=== PATIENT | male | born 1970 | race Caucasian/White ===

== ENCOUNTER 2023-01-10 17:42 | Emergency (ER) | payer OTHER, SELFPAY ==
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
[2023-01-10 17:47] VITALS: BP 140/83; PULSE 97; TEMP 37.6; O2SAT 95
[2023-01-10] MEDS: GLUCAGON FOR INJ 1 MG VIAL IV PUSH (18:22)
--- NOTE | 2023-01-10 18:46 | ED.GENADULT ---
HPI - General Adult General Chief complaint: Unspecified Stated complaint: Partial airway obstruction Time Seen by Provider: 01/10/23 17:47 Source: patient and family Mode of arrival: ambulatory Limitations: no limitations History of Present Illness HPI narrative: This is a 52-year-old gentleman that presents via EMS after he was eating steak and felt like a bolus was caught in the esophagus and was having difficult time swallowing. Although there is no drooling his voice is hoarse there is some no shortness of breath no airway obstruction not drooling no fever chills no chest pain no shortness of breath. Onset (ago): hour(s) Related Data Home Medications Medication Instructions Recorded Confirmed No Home Medications 01/10/23 01/10/23 Allergies Allergy/AdvReac Type Severity Reaction Status Date / Time gentamicin Allergy Other Verified 01/10/23 17:54 Review of Systems Review of Systems: All systems reviewed & are unremarkable except as noted in HPI and below PMFSH Past Medical History Medical History Patient denies medical problems Exam Const: General: cooperative and healthy appearing HENMT: Head: normal to inspection Ears: hearing grossly normal bilaterally Face/Nose/Sinus: Normal external nose present Face and sinus: normal facial exam Mouth: Yes Normal oral and palatal mucosa present Teeth and gingiva: dentition normal Throat: posterior oropharynx normal Eyes: General: appearance normal, both eyes and all related structures Visual Saab: normal visual saab by confrontation Alignment and Position: alignment normal Periorbital: periorbital findings normal Neck: Neck: normal visual inspection, full ROM, no lymphadenopathy and no meningeal signs Chest: Chest palpation & inspection: normal inspection of the chest and normal palpation of entire chest wall Resp: Effort & Inspection: normal respiratory effort and able to speak in complete sentences Cardio: Jugular venous distension: no JVD Palpation: normal PMI Rate: regular rate Rhythm: regular rhythm GI: Inspection: normal to inspection Percussion: Yes normal to percussion : General: Yes bimanual renal exam normal bilaterally Urinary Catheter: Urinary Catheter: patent and draining Back/Spine/Pelvis: Back: no CVA tenderness Skin: General skin exam: normal color and no rashes or lesions noted Neuro: General: oriented to person, oriented to place and oriented to time Extrem: General: normal to inspection, full ROM and capillary refill normal Course Vital Signs Vital signs: Vital Signs Temperature 37.6 C H 01/10/23 17:47 Pulse Rate 97 01/10/23 17:47 Blood Pressure 140/83 01/10/23 17:47 Pulse Oximetry 95 01/10/23 17:47 Oxygen Delivery Room Air 01/10/23 17:47 Temperature 37.6 C H 01/10/23 17:47 Pulse Rate 97 01/10/23 17:47 Blood Pressure 140/83 01/10/23 17:47 Pulse Oximetry 95 01/10/23 17:47 Oxygen Delivery Room Air 01/10/23 17:47 Medical Decision Making Vital Signs Vital Signs: Vital Signs Temperature 37.6 C H 01/10/23 17:47 Pulse Rate 97 01/10/23 17:47 Blood Pressure 140/83 01/10/23 17:47 Pulse Oximetry 95 01/10/23 17:47 Oxygen Delivery Room Air 01/10/23 17:47 Temperature 37.6 C H 01/10/23 17:47 Pulse Rate 97 01/10/23 17:47 Blood Pressure 140/83 01/10/23 17:47 Pulse Oximetry 95 01/10/23 17:47 Oxygen Delivery Room Air 01/10/23 17:47 Critical Care Time Critical Care Time Critical Care Time: No Discharge Plan Discharge Clinical Impression: Foreign body aspiration Patient Disposition: Home, Self-Care Condition: Stable Instructions: Antibiotic Form, Esophageal Foreign Body (ED) Additional Instructions: advised to follow-up primary care physician if symptoms persist or worsen. Prescriptions: No Action No Home Medications Follow-up/Referrals: U
[2023-01-10 18:55] VITALS: BP 140/67; PULSE 65; RESP 16; TEMP 36.8; O2SAT 97
== END 2023-01-10 18:57 | disposition home or self-care (01) ==
PROVIDERS: Emergency Provider Emergency Medicine
DX: T17.228A Food in pharynx causing other injury, initial encounter (principal)
CPT/HCPCS: 70360; 96374; 99284; J1610

== ENCOUNTER 2023-07-07 12:02 | Emergency (ER) | payer OTHER, SELFPAY ==
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
[2023-07-07 12:05] VITALS: BP 171/87; PULSE 83; RESP 20; TEMP 36.1; O2SAT 99
--- NOTE | 2023-07-07 12:28 | PC.NURSE ---
Patient has family member present in ED that is driving him home.
[2023-07-07 12:32] VITALS: BP 150/76; PULSE 83; RESP 20; TEMP 36.1; O2SAT 100
== END 2023-07-07 12:32 | disposition home or self-care (01) ==
PROVIDERS: Emergency Provider Emergency Medicine
DX: S01.01XA Laceration without foreign body of scalp, initial encounter (principal); W19.XXXA Unspecified fall, initial encounter
CPT/HCPCS: 12002; 99282

== ENCOUNTER 2023-08-18 21:02 | Observation (INO) | payer OTHER, SELFPAY ==
--- NOTE | ~2023-08-18 | CT_ITS ---
Noncontrast CT scan of the left femur CLINICAL HISTORY: Pain, status post fall TECHNIQUE: Axial noncontrast imaging of the left humerus performed. Sagittal and coronal reformatted images were constructed. Dose reduction technique was used on this scan by utilizing automated exposu re control and iterative reconstruction technique. The dose-length product (DLP) was 1363.80 mGy-cm. Findings: No fracture or dislocation seen. Joint spaces are preserved. No periosteal reaction. No marlon nt effusion. Visualized musculature is unremarkable. No gross soft tissue abnormality seen. IMPRESSION: No significant abnormality seen. Reviewed, dictated and finalized at location M. AL PHYSIOLOGIST
--- NOTE | ~2023-08-18 | XR_ITS ---
AP and lateral views of the left tibia/fibula Clinical History: Trauma Findings: No acute fracture or dislocation is seen. Osseous alignment is anatomic. Joint spaces are p reserved without significant erosive or degenerative change. Soft tissues are unremarkable. Impression: Unremarkable left tib-fib radiographs. Reviewed, dictated and finalized at [facility]. VIOLIN MAKER Impression: Unremarkable left tib-fib radiographs.
--- NOTE | ~2023-08-18 | XR_ITS ---
EXAMINATION: XR hip LT 2V w AP pelvis INDICATION: Left hip pain TECHNIQUE: AP view of the pelvis and two views of the left hip are obtained. COMPARISON: None available FINDINGS: Bone alignment is normal. There is no fracture. The soft tissues are unremarkable. IMPRESSION: 1. No acute osseous abnormality. Reviewed, dictated and finalized at location F. YTICS MANAGER
--- NOTE | ~2023-08-18 | XR_ITS ---
EXAMINATION: XR shoulder LT min 2V INDICATION: Left shoulder pain TECHNIQUE: Four views of the left shoulder are submitted. COMPARISON: None FINDINGS: Normal alignment. No fracture. Glenohumeral and acromioclavicular joint spaces are normal. Soft tissues are unremarkable. IMPRESSION: 1. No acute osseous abnormality. Reviewed, dictated and finalized at location F. PROGRAMMER ANALYST
--- NOTE | ~2023-08-18 | XR_ITS ---
AP and lateral views of the left femur Clinical History: Pain Findings: No acute fracture or dislocation is seen. Osseous alignment is anatomic. Visualized joint s paces are grossly preserved. Soft tissues are unremarkable. Impression: Unremarkable left femoral radiographs. Reviewed, dictated and finalized at location M. OGY FACULTY MEMBER Impression: Unremarkable left femoral radiographs.
--- NOTE | ~2023-08-18 | CT_ITS ---
EXAMINATION: CT brain wo con INDICATION: Headache COMPARISON: None TECHNIQUE: Standard unenhanced head CT. The dose-length product (DLP) was 605.33 mGy-cm. The mA was a djusted according to patient size. Iterative reconstruction technique was employed. FINDINGS: No intracranial hemorrhage, acute infarction, or abnormal mass lesion. The ventricles are n ormal. No abnormal mass effect or midline shift. The clark-white matter differentiation is normal. The basal cisterns are patent. There are changes of prior left orbital fracture repair. There is mild mu cosal thickening of the paranasal sinuses. IMPRESSION: 1. No acute intracranial abnormality. Reviewed, dictated and finalized at location F. N'S STUDIES PROFESSOR
--- NOTE | ~2023-08-18 | XR_ITS ---
Portable chest x-ray Comparison: None Clinical History: Status post fall Findings: Lungs are clear, without focal consolidation or pleural effusion. Cardiomediastinal silho uette is unremarkable. Bones and soft tissues are unremarkable. Impression: Normal chest. Reviewed, dictated and finalized at location . HIC ART DESIGNER Impression: Normal chest.
--- NOTE | ~2023-08-18 | CT_ITS ---
EXAMINATION: CT cervical spine wo con DATE: 08/18/2023 21:42 INDICATION: Neck pain after fall TECHNIQUE: Computed tomography (CT) of the cervical spine was performed without intravenous contrast. The dose-length product (DLP) was 528.64 mGy-cm. Automated exposure control and iterative reconstruc tion technique were employed. COMPARISON: None FINDINGS: There are 3 mm of retrolisthesis of C4 on C5. There is no fracture. There is mild loss of i ntervertebral disc space height at C4-5. The odontoid process is intact. There is multilevel mild fac et and uncovertebral joint osteoarthritis. IMPRESSION: 1. No acute osseous abnormality. Reviewed, dictated and finalized at location F. IC HEALTH PROFESSOR
[2023-08-18 21:02] VITALS: BP 155/86; PULSE 96; RESP 20; TEMP 36.6; O2SAT 96
--- NOTE | 2023-08-18 21:05 | ECG_ITS ---
Measurements Intervals [place] Rate: 85 P: 78 WV: 146 QRS: 35 QRSD: 102 T: 61 QT: 373 QTc: 445 Interpretive Statements SINUS RHYTHM NORMAL ECG NO PREVIOUS ECG AVAILABLE FOR COMPARISON Electronically Signed On 08-19-2023 7:05:32 QUILTING MACHINE OPERATOR by Bucky Sarkar D.O.
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
[2023-08-18 21:21] LABS: Basophils Absolute Auto 0.09 K/mm3 (0.00-0.10); Basophils Percent Auto 1.2 % (0.0-1.0); Eosinophils Absolute Auto 0.13 K/mm3 (0.02-0.50); Eosinophils Percent Auto 1.8 % (1.0-6.0); Hematocrit 38.3 % (40.0-54.0); Hemoglobin 12.4 g/dL (14.0-18.0); Immature Granulocyte Absolute 0.02 K/mm3 (0.00-0.00); Immature Granulocyte Percent A 0.3 % (0.0-0.0); Immature Platelet Fraction Pct 4.1 % (1.0-7.0); Lymphocytes Absolute Auto 2.29 K/mm3 (1.10-4.50); Mean Corpuscular HGB Conc 32.4 g/dL (32.0-36.0); Mean Corpuscular Hemoglobin 28.3 pg (27.0-31.0); Mean Corpuscular Volume 87.4 fL (78.0-102.0); Mean Platelet Volume 10.5 fl (8.7-11.0); Monocytes Absolute Auto 0.77 K/mm3 (0.10-0.90); Monocytes Percent Auto 10.4 % (2.0-11.0); Neutrophils Absolute Auto 4.1 K/mm3 (1.7-7.2); Neutrophils Percent Auto 55.3 % (50.0-70.0); Platelet Count Result 80 K/mm3 (150-420); Red Blood Count 4.38 M/mm3 (4.70-6.10); Red Cell Distribution Width 19.6 % (11.6-14.4); White Blood Count 7.4 K/mm3 (4.8-10.8)
[2023-08-18 21:35] LABS: INR 1.3; Partial Thromboplastin Time 34.5 SEC (23.90-30.70); Prothrombin Time 14.4 Seconds (9.50-12.10)
[2023-08-18 21:40] LABS: Alanine Aminotransferase 36 U/L (16-63); Albumin Level 3.3 g/dL (3.4-5.0); Alkaline Phosphatase 139 U/L (46-116); Anion Gap 14 mmol/L (8-16); Aspartate Amino Transferase 80 U/L (15-37); Bilirubin,Total 1.7 mg/dL (0.00-1.00); Blood Urea Nitrogen 4 mg/dL (7-18); Calcium 8.7 mg/dL (8.5-10.1); Carbon Dioxide 21 mmol/L (21-32); Chloride 106 mmol/L (98-108); Estimated CRCL calculation 110 ml/min; Estimated Glomerular Filt Rate > 60; Glucose 106 mg/dL (70-99); Osmolality Calculated 288 mOsm/kg (285-295); Potassium 3.8 mmol/L (3.5-5.1); Sodium 141 mmol/L (136-145); Total Protein 8.2 g/dL (6.4-8.2); Troponin I 18.4 ng/L (0.00-60.4)
[2023-08-18] MEDS: SODIUM CHLORIDE 0.9% IV 1,000 ML 150 ML IV CONT (22:05)
[2023-08-18] MEDS: ONDANSETRON INJ 4 MG/2 ML VIAL IV PUSH (22:05)
[2023-08-18] MEDS: MORPHINE SULFATE (*CRX) 2 MG/ML INJ IV PUSH (22:05)
[2023-08-18 22:11] LABS: SARS-CoV-2 RNA PCR Positive (Negative)
[2023-08-18 22:14] LABS: Influenza A QL RT-PCR Negative (Negative); Influenza B QL RT-PCR Negative (Negative); RSV RNA, RT-PCR Negative (Negative)
[2023-08-18] MEDS: MORPHINE SULFATE (*CRX) 2 MG/ML INJ (22:40)
[2023-08-18 22:53] LABS: Appearance Urine Clear (Clear); Bilirubin Urine Negative (Negative); Blood Urine Negative (Negative); Color Urine Light Yellow (Yellow); Glucose Urine UA Negative (Negative); Ketones Urine Negative (Negative); Leukocyte Esterase Ur Negative LEU/UL (Negative); Nitrate Urine Negative (Negative); Protein Urine Negative (Negative); Specific Grav Ur <= 1.005 (1.010-1.020); Urobilinogen Urine 0.2 mg/dL (0.2-1.0)
[2023-08-18 22:55] LABS: Add Urine Microscopic? NO
[2023-08-19 00:11] VITALS: PULSE 86
[2023-08-19 00:15] LABS: Creatine Kinase 285 U/L (39-308)
[2023-08-19 01:00] VITALS: BMI 26.7
--- NOTE | 2023-08-19 01:10 | ADMGEN ---
This patient, Ziggy Bowden, was admitted to 2nd Floor Room 210-2. Patient/family oriented to hospital policies and general routines including ID bracelet, bed and alarms, visiting hours, pain management, procedures, bathroom and other care routines, personal items, smoking policy, room service/diet, and visiting hours. Information on how to activate the Rapid Response Team has been discussed. Patient/Family are encouraged to report perceived risks to care and to ask questions if they do not understand what they are told or what they should do.
[2023-08-19] MEDS: SODIUM CHLORIDE 0.9% IV 1,000 ML 100 ML IV CONT (01:20)
[2023-08-19] MEDS: MORPHINE SULFATE (*CRX) 2 MG/ML INJ IV PUSH ×2 (01:21→05:06)
[2023-08-19 01:47] VITALS: PULSE 96; RESP 20; O2SAT 96
[2023-08-19 04:00] VITALS: BP 133/63; PULSE 74; PULSE 86; RESP 17; TEMP 36.7; O2SAT 96
[2023-08-19 05:20] LABS: Basophils Absolute Auto 0.08 K/mm3 (0.00-0.10); Basophils Percent Auto 1.4 % (0.0-1.0); Eosinophils Percent Auto 1.8 % (1.0-6.0); Hematocrit 34.1 % (40.0-54.0); Hemoglobin 10.8 g/dL (14.0-18.0); Immature Granulocyte Absolute 0.02 K/mm3 (0.00-0.00); Immature Granulocyte Percent A 0.4 % (0.0-0.0); Immature Platelet Fraction Pct 4.1 % (1.0-7.0); Lymphocytes Absolute Auto 2.09 K/mm3 (1.10-4.50); Mean Corpuscular HGB Conc 31.7 g/dL (32.0-36.0); Mean Corpuscular Hemoglobin 28.3 pg (27.0-31.0); Mean Corpuscular Volume 89.3 fL (78.0-102.0); Mean Platelet Volume 10.6 fl (8.7-11.0); Monocytes Absolute Auto 0.53 K/mm3 (0.10-0.90); Monocytes Percent Auto 9.4 % (2.0-11.0); Neutrophils Absolute Auto 2.8 K/mm3 (1.7-7.2); Platelet Count Result 59 K/mm3 (150-420); Red Blood Count 3.82 M/mm3 (4.70-6.10); Red Cell Distribution Width 19.6 % (11.6-14.4); White Blood Count 5.7 K/mm3 (4.8-10.8)
[2023-08-19 05:47] LABS: Alanine Aminotransferase 33 U/L (16-63); Albumin Level 3.1 g/dL (3.4-5.0); Alkaline Phosphatase 117 U/L (46-116); Anion Gap 10 mmol/L (8-16); Aspartate Amino Transferase 62 U/L (15-37); Bilirubin,Total 1.5 mg/dL (0.00-1.00); Blood Urea Nitrogen 5 mg/dL (7-18); Calcium 7.5 mg/dL (8.5-10.1); Carbon Dioxide 24 mmol/L (21-32); Chloride 111 mmol/L (98-108); Creatine Kinase 223 U/L (39-308); Estimated CRCL calculation 104 ml/min; Estimated Glomerular Filt Rate > 60; Glucose 80 mg/dL (70-99); Osmolality Calculated 296 mOsm/kg (285-295); Potassium 4.2 mmol/L (3.5-5.1); Sodium 145 mmol/L (136-145)
--- NOTE | 2023-08-19 07:07 | PC.NURSE ---
Patient was admitted to the second floor at 0110 today. Patient fell off his back porch and was experiencing a great deal of pain, especially on the left side of his body. X-rays and CT scans could not find any fractures. Patient also hit his head, and a CT scan of the brain did not find any bleeds or hematomas. patient did become nauseous and vomited after falling. He also became nauseous later on in the ED, after receiving morphine 2 mg. IV push for pain of 8/10. Patient's goals are pain control and PT evaluation. Patient was able to sleep at times, but was also somewhat disoriented due to the morphine he received for pain. Patient is on bedrest, CIWAs Q4, droplet precautions for Covid, Neuros Q2, Vitals Q4 and PT.
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
[2023-08-19 08:30] VITALS: BP 131/71; PULSE 89; RESP 16; TEMP 36.6; O2SAT 97
[2023-08-19] MEDS: THIAMINE HCL 200 MG/2 ML VIAL 100 MG IV PUSH (08:58)
[2023-08-19] MEDS: traMADol HCL (*CRX) 50 MG TABLET 100 MG PO (08:59)
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
--- NOTE | 2023-08-19 11:00 | PC.NURSE ---
Patient discharging home. IV site removed, tip intact dressing applied to site. Patients sister Sarah here to transport patient home. All discharge instructions and education reviewed with patient and sister. both parties state understanding. All belongings gathered together and sent home with patient. Patient accompanied to front door via wheelchair by this nurse, left via private vehicle with sister.
--- NOTE | 2023-08-20 09:15 | PC.NURSE ---
discharge call back attempted, no answer
--- NOTE | 2023-08-21 09:15 | PC.NURSE ---
Discharge call back completed, doing ok at home, resting and taking it easy, did receive and understand dc instructions, care was great
== END 2023-08-19 11:00 | disposition home or self-care (01) ==
LOC: CHSED 23:49 → CHS2ND 08-19 00:58
PROVIDERS: Admitting Provider Internal Medicine; Emergency Provider Emergency Medicine; Visit Provider Internal Medicine
DX: S70.12XA Contusion of left thigh, initial encounter (principal); U07.1 COVID-19; M54.2 Cervicalgia; M25.512 Pain in left shoulder; M25.552 Pain in left hip; W00.0XXA Fall on same level due to ice and snow, initial encounter; D69.6 Thrombocytopenia, unspecified; Z91.148 Patient's other noncompliance with medication regimen for other reason; I69.354 Hemiplegia and hemiparesis following cerebral infarction affecting left non-dominant side; H54.62 Unqualified visual loss, left eye, normal vision right eye; F17.210 Nicotine dependence, cigarettes, uncomplicated; F10.90 Alcohol use, unspecified, uncomplicated; Z79.1 Long term (current) use of non-steroidal anti-inflammatories (NSAID)
CPT/HCPCS: 36415; 70450; 71045; 72125; 73030; 73502; 73552; 73590; 73700; 80053; 81003; 82550; 83735; 84484; 85025; 85055; 85610; 85730; 87637; 93005; 96361; 96374; 96375; 96376; 97161; 97165; 99285; A9270; G0378; J2270; J2405; J3411; J7030; L0150

== ENCOUNTER 2023-09-06 02:55 | Emergency (ER) | payer OTHER, SELFPAY ==
--- NOTE | ~2023-09-06 | CT_ITS ---
Noncontrast CT scan of the lumbar spine CLINICAL HISTORY: Back pain, prior fall TECHNIQUE: Axial noncontrast imaging of the lumbar spine was performed. Sagittal and coronal reformat joel images were constructed. Dose reduction technique was used on this scan by utilizing automated ex posure control and iterative reconstruction technique. The dose-length product (DLP) was 981.83 mGy-c m. FINDINGS: There is no fracture or subluxation of the lumbar spine. Vertebral bodies maintain normal h eight and line. Intervertebral disc spaces are relatively well-preserved. At L1-L2, there is minimal disc bulge. No spinal canal stenosis or definite neural foraminal narrowin g. At L2-L3, there is minimal disc bulge. No spinal canal stenosis or definite neural foraminal narrowin g. At L3-L4, there is minimal disc bulge and minimal facet hypertrophy. No definite canal stenosis or ne ural foraminal narrowing. At L4-L5, there is minimal disc bulge and mild facet hypertrophy. No spinal canal stenosis or definit e neural foraminal narrowing. At L5-S1, there is no disc bulge or herniation. No spinal canal stenosis. Possible minimal left neura l foraminal narrowing. Paravertebral soft tissues are unremarkable. Impression: No fracture or subluxation. Minimal degenerative spondylitic changes. Reviewed, dictated and finalized at [facility]. ASSEMBLER Impression: No fracture or subluxation. Minimal degenerative spondylitic changes.
--- NOTE | ~2023-09-06 | CT_ITS ---
Noncontrast CT scan of the thoracic spine CLINICAL HISTORY: Back pain, prior fall TECHNIQUE: Axial noncontrast imaging of the thoracic spine was performed. Sagittal and coronal reform atted images were constructed. Dose reduction technique was used on this scan by utilizing automated exposure control and iterative reconstruction technique. The dose-length product (DLP) was 524.03 mGy -cm. FINDINGS: There is no fracture or subluxation of the thoracic spine. Vertebral bodies maintain normal height and alignment. Residual disc spaces are well preserved. There are anterior marginal osteophyt es at T8-T9 and T9-T10. No definite disc bulge or herniation seen in the thoracic spine. No distinct canal stenosis or cord c ompression identified. Paravertebral soft tissues are unremarkable. Impression: No significant abnormality seen. Reviewed, dictated and finalized at [facility]. PALLETIZER Impression: No significant abnormality seen.
[2023-09-06 02:55] VITALS: BP 160/82; PULSE 84; RESP 18; TEMP 36.7; O2SAT 99
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
[2023-09-06] MEDS: KETOROLAC 30 MG/ML VIAL (*BKC) IV PUSH (03:21)
[2023-09-06 04:04] VITALS: BP 142/77; PULSE 77; RESP 18; O2SAT 96
== END 2023-09-06 04:36 | disposition home or self-care (01) ==
PROVIDERS: Emergency Provider Emergency Medicine
DX: S39.012A Strain of muscle, fascia and tendon of lower back, initial encounter (principal); F17.210 Nicotine dependence, cigarettes, uncomplicated; Z86.73 Personal history of transient ischemic attack (TIA), and cerebral infarction without residual deficits; W18.39XA Other fall on same level, initial encounter
CPT/HCPCS: 72128; 72131; 96374; 99284; J1885

== ENCOUNTER 2023-10-26 19:41 | Observation (INO) | payer OTHER, SELFPAY ==
[2023-10-26] VITALS (21 sets, daily range): BP systolic 127–137; BP diastolic 66–113; PULSE 79–87; RESP 14–20; TEMP 36.8; O2SAT 91–97; BMI 27.4
--- NOTE | ~2023-10-26 | CT_ITS ---
EXAMINATION: CT brain wo con DATE: 10/26/2023 20:13 INDICATION: Neuro deficit. LEFT SIDE WEAKNESS. . TECHNIQUE: Computed tomography (CT) of the head was performed without intravenous contrast. The mA wa s adjusted according to patient size. Iterative reconstruction technique was employed. The dose-lengt h product was 605.33 mGy-cm. COMPARISON: 08/18/2023. FINDINGS: No acute intracranial hemorrhage or extra-axial fluid collection. No hydrocephalus, mass, or herniation. No acute ischemic infarct. Unremarkable dural venous sinus attenuation. No acute osseous abnormality. The aerated spaces are clear. Status post left orbital fixation. Ethmoid and maxillary sinus mucosal thickening. IMPRESSION: No acute intracranial process. Reviewed, dictated and finalized at location K.
--- NOTE | ~2023-10-26 | CT_ITS ---
EXAMINATION: CTA brain carotid DATE: 10/26/2023 21:06 INDICATION: history of stroke with left side numbness and tingling TECHNIQUE: Computed tomographic angiography (CTA) of the head was and neck performed with 100 mL Omni paque-350 intravenous contrast. CTA of the neck was performed with intravenous contrast. Automated ex posure control and iterative reconstruction technique were employed. The dose-length product was 1180 .39 mGy-cm. Maximum intensity projection and volume rendered 3D-reconstructions were created by the t echnologist on a separate workstation. COMPARISON: CT brain, same date. FINDINGS: CTA HEAD: No large vessel occlusion, aneurysm, high flow vascular malformation, nidus or extravasation. CTA NECK: Aortic arch and proximal great vessels: Atherosclerotic calcifications at the visualized aortic arch and proximal great vessels. Right common carotid, carotid bifurcation, and internal carotid artery: Moderate calcified and noncal cified plaque in the carotid bulb and proximal internal carotid artery.There is 29% stenosis of the p roximal right internal carotid artery relative to normal distal artery lumen diameter (NASCET criteri a). Left common carotid, carotid bifurcation, and internal carotid artery: Ulcerative appearing plaques i n the left common carotid artery. Moderate calcified plaque at carotid bulb.There is 0% stenosis of t he proximal left internal carotid artery relative to normal distal artery lumen diameter (NASCET crit eria). Vertebral arteries: No significant plaque or stenosis. Right vertebral artery is dominant, Other findings: Degenerative changes in the cervical spine. Status post remote left orbital fracture repair. Status post bilateral antral window procedure. Ethmoid and maxillary sinus thickening with vo lume loss and sclerosis suggestive of chronic sinusitis in the maxillary sinuses. IMPRESSION: No large vessel intracranial occlusion, high-grade intracranial stenosis, or aneurysm. No carotid or vertebral artery occlusion, dissection, or significant stenosis. Reviewed, dictated and finalized at location K. IMPRESSION: No large vessel intracranial occlusion, high-grade intracranial stenosis, or an eurysm. No carotid or vertebral artery occlusion, dissection, or significant stenosis.
--- NOTE | 2023-10-26 19:43 | ECG_ITS ---
Measurements Intervals [place] Rate: 83 P: 75 ND: 147 QRS: -2 QRSD: 102 T: 36 QT: 389 QTc: 458 Interpretive Statements SINUS RHYTHM POSSIBLE LEFT ATRIAL ENLARGEMENT BASELINE WANDER- I, III, AVL, V1-V2 BORDERLINE ECG COMPARED TO ECG 08/18/2023 21:25:27 NO SIGNIFICANT CHANGES Electronically Signed On 10-26-2023 21:33:55 CDT by Bucky Sarkar D.O.
[2023-10-26 19:46] LABS: Glucose Point of Care 102 mg/dl (65-105)
[2023-10-26 20:06] LABS: Basophils Absolute Auto 0.24 K/mm3 (0.00-0.10); Basophils Percent Auto 2.6 % (0.0-1.0); Eosinophils Absolute Auto 0.18 K/mm3 (0.02-0.50); Hematocrit 38.2 % (40.0-54.0); Hemoglobin 12.4 g/dL (14.0-18.0); Immature Granulocyte Absolute 0.04 K/mm3 (0.00-0.00); Immature Granulocyte Percent A 0.4 % (0.0-0.0); Lymphocytes Absolute Auto 3.57 K/mm3 (1.10-4.50); Lymphocytes Percent Auto 39.4 % (18.0-42.0); Mean Corpuscular HGB Conc 32.5 g/dL (32-36); Mean Corpuscular Hemoglobin 30.5 pg (27.0-31.0); Mean Corpuscular Volume 94.1 fL (78.0-102.0); Mean Platelet Volume 10.5 fl (8.7-11.0); Monocytes Percent Auto 13.2 % (2.0-11.0); Neutrophils Absolute Auto 3.84 K/mm3 (1.70-7.20); Neutrophils Percent Auto 42.4 % (50.0-70.0); Platelet Count Result 174 K/mm3 (150-420); Red Blood Count 4.06 M/mm3 (4.70-6.10); Red Cell Distribution Width 19.7 % (11.6-14.4); White Blood Count 9.1 K/mm3 (4.8-10.8)
[2023-10-26 20:14] LABS: INR 1.2; Prothrombin Time 12.9 Seconds (9.50-12.1)
[2023-10-26 20:21] LABS: Alanine Aminotransferase 16 U/L (16-63); Albumin Level 3.1 g/dL (3.4-5.0); Alkaline Phosphatase 102 U/L (46-116); Anion Gap 9 mmol/L (8-16); Aspartate Amino Transferase 50 U/L (15-37); Bilirubin,Total 1.1 mg/dL (0.00-1.00); Blood Urea Nitrogen 7 mg/dL (7-18); Calcium 8.5 mg/dL (8.5-10.1); Carbon Dioxide 29 mmol/L (21-32); Chloride 111 mmol/L (98-108); Estimated CRCL calculation 76 ml/min; Estimated Glomerular Filt Rate > 60; Glucose 106 mg/dL (70-99); Osmolality Calculated 306 mOsm/kg (285-295); Potassium 3.2 mmol/L (3.5-5.1); Sodium 149 mmol/L (136-145); Total Protein 7.3 g/dL (6.4-8.2); Troponin I 21.2 ng/L (0.00-60.4)
[2023-10-26] MEDS: SODIUM CHLORIDE 0.9% IV 1,000 ML 999 ML IV CONT (20:21)
[2023-10-26 20:23] LABS: Ethanol 403 mg/dL (0-6)
--- NOTE | 2023-10-26 20:39 | PC.NURSE ---
This RN called to room by friend at bedside. Friend stated that he was acting funny and not responding. Friend stated that his rolled into the back of his head and he started breathing weird. VS were stable during event. Patient was arousable after about a minute. Patient initially couldn't remember where he was or why he was in the hospital. Patient eventually after a couple minutes was able to remember and was back to baseline. Dr Miles at bedside for evaluation.
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
[2023-10-26 21:49] LABS: Appearance Urine Clear (Clear); Bilirubin Urine Negative (Negative); Blood Urine Negative (Negative); Color Urine Light Yellow (Yellow); Glucose Urine UA Negative (Negative); Ketones Urine Negative (Negative); Leukocyte Esterase Ur Negative LEU/UL (Negative); Nitrate Urine Negative (Negative); Protein Urine Negative (Negative); Specific Grav Ur <= 1.005 (1.010-1.020); Urobilinogen Urine 0.2 mg/dL (0.2-1.0)
[2023-10-26 21:55] LABS: Add Urine Microscopic? NO; Amphetamine Screen Urine Negative (Negative); Barbiturate Screen Urine Negative (Negative); Benzodiazepines Screen Urine Negative (Negative); Cannabinoid Screen Urine Negative (Negative); Cocaine Screen Urine Negative (Negative); Methadone Screen Urine Negative (Negative); Opiate Screen Urine Negative (Negative); Phencyclidine Screen Urine Negative (Negative)
[2023-10-26] MEDS: levETIRAcetam 1000MG/NACL100ML 1,000 MG/100 ML BAG 400 MG IVPB (22:00)
--- NOTE | 2023-10-26 22:51 | ADMGEN ---
This patient, Ziggy Bowden, was admitted to 2nd Floor Room 207-2. Patient oriented to hospital policies and general routines including ID bracelet, bed and alarms, visiting hours, pain management, procedures, bathroom and other care routines, personal items, smoking policy, room service/diet, and visiting hours. Information on how to activate the Rapid Response Team has been discussed. Patient encouraged to report perceived risks to care and to ask questions if they do not understand what they are told or what they should do.
[2023-10-26] MEDS: SODIUM CHLORIDE 0.9% IV 1,000 ML 100 ML IV CONT (23:10)
[2023-10-26] MEDS: ACETAMINOPHEN 325 MG TABLET 650 MG PO (23:12)
[2023-10-26] MEDS: LORazepam (*CRX) 0.5 MG TABLET PO (23:12)
[2023-10-27] VITALS (7 sets, daily range): BP systolic 92–141; BP diastolic 43–70; PULSE 72–86; RESP 16–18; TEMP 36.3–37.1; O2SAT 94–96
[2023-10-27] MEDS: ACETAMINOPHEN 325 MG TABLET 650 MG PO ×2 (04:30→09:07)
[2023-10-27 05:34] LABS: Glucose Point of Care 80 mg/dl (65-105)
[2023-10-27 06:02] LABS: Basophils Absolute Auto 0.17 K/mm3 (0.00-0.10); Eosinophils Absolute Auto 0.14 K/mm3 (0.02-0.50); Eosinophils Percent Auto 2.5 % (1.0-6.0); Hematocrit 34.2 % (40.0-54.0); Hemoglobin 10.9 g/dL (14.0-18.0); Immature Granulocyte Absolute 0.01 K/mm3 (0.00-0.00); Immature Granulocyte Percent A 0.2 % (0.0-0.0); Lymphocytes Absolute Auto 2.21 K/mm3 (1.10-4.50); Lymphocytes Percent Auto 39.4 % (18.0-42.0); Mean Corpuscular HGB Conc 31.9 g/dL (32-36); Mean Corpuscular Volume 94.2 fL (78.0-102.0); Mean Platelet Volume 9.7 fl (8.7-11.0); Monocytes Absolute Auto 0.62 K/mm3 (0.10-0.90); Monocytes Percent Auto 11.1 % (2.0-11.0); Neutrophils Absolute Auto 2.46 K/mm3 (1.70-7.20); Neutrophils Percent Auto 43.8 % (50.0-70.0); Platelet Count Result 124 K/mm3 (150-420); Red Blood Count 3.63 M/mm3 (4.70-6.10); Red Cell Distribution Width 19.7 % (11.6-14.4); White Blood Count 5.6 K/mm3 (4.8-10.8)
[2023-10-27 06:15] LABS: Alanine Aminotransferase 12 U/L (16-63); Albumin Level 2.6 g/dL (3.4-5.0); Alkaline Phosphatase 85 U/L (46-116); Anion Gap 9 mmol/L (8-16); Aspartate Amino Transferase 38 U/L (15-37); Bilirubin,Total 0.8 mg/dL (0.00-1.00); Blood Urea Nitrogen 6 mg/dL (7-18); Calcium 7.5 mg/dL (8.5-10.1); Carbon Dioxide 28 mmol/L (21-32); Chloride 114 mmol/L (98-108); Estimated CRCL calculation 100 ml/min; Estimated Glomerular Filt Rate > 60; Glucose 89 mg/dL (70-99); Osmolality Calculated 308 mOsm/kg (285-295); Potassium 3.4 mmol/L (3.5-5.1); Sodium 151 mmol/L (136-145)
[2023-10-27 06:17] LABS: Ethanol 238 mg/dL (0-6)
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
[2023-10-27] MEDS: LACTATED RINGERS 1,000 ML 100 ML IV CONT ×2 (07:59→20:04)
[2023-10-27 08:47] LABS: Cholesterol 134 mg/dL (0-200); HDL Direct 39 mg/dL (40-60); LDL Cholesterol Calculated 72 mg/dL (<130); Magnesium 1.8 mg/dL (1.8-2.4); Triglycerides 113 mg/dL (0-150)
[2023-10-27] MEDS: ATORVASTATIN 40 MG TABLET 80 MG PO (09:06)
[2023-10-27] MEDS: ASPIRIN 81 MG CHEWABLE TABLET 324 MG PO (09:10)
[2023-10-27] MEDS: ONDANSETRON INJ 4 MG/2 ML VIAL IV PUSH (11:38)
[2023-10-27] MEDS: POTASSIUM CHLORIDE 20 MEQ ER TABLET 40 MEQ PO (11:52)
[2023-10-27 12:30] LABS: Sodium 148 mmol/L (136-145)
[2023-10-27 18:37] LABS: Anion Gap 8 mmol/L (8-16); Blood Urea Nitrogen 6 mg/dL (7-18); Calcium 7.7 mg/dL (8.5-10.1); Carbon Dioxide 29 mmol/L (21-32); Chloride 109 mmol/L (98-108); Estimated CRCL calculation 96 ml/min; Estimated Glomerular Filt Rate > 60; Glucose 127 mg/dL (70-99); Osmolality Calculated 301 mOsm/kg (285-295); Potassium 3.6 mmol/L (3.5-5.1); Sodium 146 mmol/L (136-145)
[2023-10-28] VITALS: BP 132/65; PULSE 89; RESP 17; TEMP 36.6; O2SAT 98
[2023-10-28 00:41] LABS: Sodium 146 mmol/L (136-145)
[2023-10-28 05:28] LABS: Hematocrit 35.6 % (40.0-54.0); Hemoglobin 11.3 g/dL (14.0-18.0); Mean Corpuscular HGB Conc 31.7 g/dL (32-36); Mean Corpuscular Hemoglobin 29.8 pg (27.0-31.0); Mean Corpuscular Volume 93.9 fL (78.0-102.0); Mean Platelet Volume 11.5 fl (8.7-11.0); Platelet Count Result 111 K/mm3 (150-420); Red Blood Count 3.79 M/mm3 (4.70-6.10); Red Cell Distribution Width 18.6 % (11.6-14.4)
[2023-10-28 05:58] LABS: Alanine Aminotransferase 18 U/L (16-63); Albumin Level 2.8 g/dL (3.4-5.0); Alkaline Phosphatase 95 U/L (46-116); Anion Gap 10 mmol/L (8-16); Aspartate Amino Transferase 36 U/L (15-37); Bilirubin,Total 1.8 mg/dL (0.00-1.00); Blood Urea Nitrogen 6 mg/dL (7-18); Calcium 8.1 mg/dL (8.5-10.1); Carbon Dioxide 27 mmol/L (21-32); Chloride 108 mmol/L (98-108); Estimated CRCL calculation 105 ml/min; Estimated Glomerular Filt Rate > 60; Glucose 94 mg/dL (70-99); Magnesium 1.8 mg/dL (1.8-2.4); Osmolality Calculated 297 mOsm/kg (285-295); Potassium 3.7 mmol/L (3.5-5.1); Sodium 145 mmol/L (136-145); Total Protein 6.4 g/dL (6.4-8.2)
[2023-10-28 06:22] LABS: Band Neutrophils Percent 0 % (0-6); Lymphocytes Percent Manual 24 % (18-44); Monocytes Percent Manual 10 % (3-9); Neutrophils Percent Manual 66 % (46-73); Platelet Estimate Adequate (Adequate); Total Cells Counted 100
[2023-10-28] MEDS: LACTATED RINGERS 1,000 ML 100 ML IV CONT (07:05)
[2023-10-28 08:00] VITALS: BP 150/71; PULSE 81; RESP 18; TEMP 36.6; O2SAT 99
--- NOTE | 2023-10-28 08:00 | ECHO_ITS ---
Patient Info Name: Ziggy Bowden Age: 53 years : 1970 Gender: Male Ht: 72 in Wt: 208 lbs BSA: 2.21 m2 HR: 81 bpm BP: 150 / 71 mmHg Heart Rhythm: Sinus Rhythm Technical Quality: Good Exam Date: 10/28/2023 11:18 AM Exam Location: Echo Lab Patient Status: Inpatient Admit Date: 10/26/2023 Staff Ordering Physician: Garry Jean APRN Plant And Maintenance Technician: Vicki Martino RDCS Attending Provider: Osman Ball MD Referring Physician: Ted HAQ; Exam Type: CA echo doppler w bubble study Study Info Indications - stroke Complete two-dimensional, color flow and Doppler transthoracic echocardiogram is performed with agitated saline. Summary 1. Left ventricular chamber dimension is normal. 2. Left ventricular systolic function is normal, estimated at 60-65%. 3. The left ventricular diastolic function is abnormal. 4. E/e' 12 is mildly elevated. 5. There is mild aortic valve sclerosis. 6. There is trace mitral valve regurgitation. 7. There is mild tricuspid valve regurgitation. 8. Mild pulmonary hypertension, estimated pulmonary arterial systolic pressure is 42 mmHg. Left Ventricle E/e' 12 is mildly elevated. Left ventricular chamber dimension is normal. Left ventricular systolic function is normal, estimated at 60-65%. The left ventricular diastolic function is abnormal. Right Ventricle Right ventricular systolic function is normal and with normal TAPSE 4.0 cm. Right ventricular chamber dimension is normal. Left Atria Left atrial chamber dimension is normal. Right Atria Right atrial chamber dimension is normal. Atrial Septum Agitated saline injection with and without valsalva maneuver opacified right side side cardiac chambers without shunt to left side cardiac chambers. Intact interatrial septum visualized by 2D and agitated saline imaging. Aortic Valve The aortic valve is trileaflet. There is mild aortic valve sclerosis. There is no aortic valve stenosis. There is no aortic valve regurgitation. Pulmonic Valve There is no pulmonic regurgitation. Mitral Valve There is no mitral valve stenosis. There is trace mitral valve regurgitation. Tricuspid Valve There is mild tricuspid valve regurgitation. Mild pulmonary hypertension, estimated pulmonary arterial systolic pressure is 42 mmHg. Pericardium/Pleural There is no pericardial effusion. Inferior Vena Cava Normal inferior vena cava with >50% collapse upon inspiration consistent with normal right atrial pressure, 5 mmHg. Aorta The aortic root size at the sinus of Valsalva is normal. Left Ventricular Outflow Tract Name Value Normal LVOT 2D LVOT Diameter 2.2 cm LVOT Doppler LVOT Peak Velocity 152 cm/s LVOT Peak Gradient 9 mmHg LVOT Mean Gradient 5 mmHg LVOT VTI 40 cm LVOT VTI/AV VTI Ratio 0.8 LVOT Stroke Volume 148 ml Pulmonic Valve Name Value Normal CARROLL Lamar
[2023-10-28] MEDS: ATORVASTATIN 40 MG TABLET 80 MG PO (08:51)
[2023-10-28] MEDS: ASPIRIN 81 MG ENTERIC TABLET PO (08:51)
--- NOTE | 2023-10-28 10:32 | PM.DS ---
DS: Admitting Diagnosis Discharge Date 10/28/2023 Admitting Diagnosis history of CVA, alcohol intoxication, blindness and low vision, hypernatremia, tobacco abuse DS: Discharge Diagnosis Discharge Diagnosis (1) History of stroke: Code(s): Z86.73 - Personal history of transient ischemic attack (TIA), and cerebral infarction without residual deficits Status: Acute (2) Alcohol intoxication: Qualifiers: Complication of substance-induced condition: uncomplicated Qualified Code(s): F10.920 - Alcohol use, unspecified with intoxication, uncomplicated Code(s): F10.929 - Alcohol use, unspecified with intoxication, unspecified Status: Acute (3) Blindness and low vision: Code(s): H54.10 - Blindness, one eye, low vision other eye, unspecified eyes Status: Acute (4) Hypernatremia: Code(s): E87.0 - Hyperosmolality and hypernatremia Status: Acute (5) Tobacco abuse: Code(s): Z72.0 - Tobacco use Status: Acute DS: Summary Hospital Course Hospital Course: This is a 53 year old male patient with prior stroke who was admitted with concern for recurrent stroke vs alcohol intoxication exacerbating symptoms. Patient had numbness left side of lips and left leg along with transient speech disturbance. Labs also showed hypernatremia which was gradually improved with IV fluids and frequent redraws to make sure correction wasn't too rapid. Today patient had echocardiogram with bubble study. MRI to be obtained as an outpatient as truck is not here during time of admission. Attempted to schedule this test but not available due to insurance coverage so patient was instructed to contact insurance to find where he can have test completed. Discussed establishing primary care for follow up. Status at Discharge Cognitive/behavioral status at discharge: awake, alert, oriented, pleasant Time Spent with Patient Time attestation: Total time spent providing and/or coordinating discharge services: 40 minutes Time spent: Greater than 30 minutes Exam Const: General: no acute distress and well nourished Nutritional Appearance: well nourished Orientation/consciousness: patient oriented x3 Limitations: physical limitations HENMT: Head: normal to inspection Eyes: Other: Difficult to assess because of blindness in the left eye Neck: Neck: normal visual inspection, no lymphadenopathy and no meningeal signs Chest: Chest palpation & inspection: normal inspection of the chest Resp: Effort & Inspection: normal respiratory effort Auscultation: wheezes expiratory wheezes (slight, clears with cough) and anterior Cardio: Rate: regular rate Rhythm: regular rhythm GI: Auscultation: normal bowel sounds : General: Yes bladder normal to palpation and Yes no CVA tenderness Back/Spine/Pelvis: Back: no CVA tenderness Skin: General skin exam: normal color Rashes: no rashes Wounds: no wounds Neuro: General: patient oriented x3, moves all extremities, no meningeal signs and no focal motor deficits Speech: normal speech Extrem: General: normal to inspection, no clubbing, cyanosis or edema and no pedal edema Psych: Mental Status: mental status grossly normal DS: Data Data Completed and Pending Completed studies during hospitalization: Head CT, Head/Neck CTA, Echocardiogram with bubble Pending studies at discharge: MRI Brain ordered as outpatient Labs on day of discharge: Labs from last 24 hours 10/28/23 10/28/23 10/27/23 05:12 00:22 18:20 WBC 5.0 RBC 3.79 L Hgb 11.3 L Hct 35.6 L MCV 93.9 MCH 29.8 MCHC 31.7 L RDW 18.6 H Plt Count 111 L MPV 11.5 H Immature Gran % (Auto) Not Reportable Neut % (Auto) Not Reportable Lymph % (Auto) Not Reportable [place] % (Auto) Not Reportable Eos % (Auto) Not Reportable Baso % (Auto) Not Reportable Lymph # (Auto) Not Reportable [place] # (Auto) Not Reportable Eos # (Auto) Not Repor
[2023-10-28] MEDS: THIAMINE HCL 100 MG TABLET PO (12:58)
--- NOTE | 2023-10-28 13:10 | PC.NURSE ---
Discharge instructions reviewed with patient. Patient verbalizes understanding. Patient taken off floor via wheelchair, escorted to family vehicle.
--- NOTE | 2023-10-31 09:52 | PC.NURSE ---
Discharge call back attempted, no answer
--- NOTE | 2023-11-07 09:57 | PC.NURSE ---
Discharge call back completed, doing ok, care was great, no questions regarding dc instructions
== END 2023-10-28 13:10 | disposition home or self-care (01) ==
LOC: CHSED 21:56 → CHS2ND 22:23
PROVIDERS: Nurse Practitioner; Admitting Provider Internal Medicine; Emergency Provider Emergency Medicine; Visit Provider Internal Medicine
DX: R53.1 Weakness (principal); R47.01 Aphasia; R56.9 Unspecified convulsions; F10.129 Alcohol abuse with intoxication, unspecified; Y90.8 Blood alcohol level of 240 mg/100 ml or more; E87.0 Hyperosmolality and hypernatremia; Z91.148 Patient's other noncompliance with medication regimen for other reason; I08.2 Rheumatic disorders of both aortic and tricuspid valves; I27.20 Pulmonary hypertension, unspecified; I69.354 Hemiplegia and hemiparesis following cerebral infarction affecting left non-dominant side; S05.8X2S Other injuries of left eye and orbit, sequela; S05 Injury of eye and orbit; H54.10 Blindness, one eye, low vision other eye, unspecified eyes; Y24.9XXS Unspecified firearm discharge, undetermined intent, sequela; F17.210 Nicotine dependence, cigarettes, uncomplicated; Z79.1 Long term (current) use of non-steroidal anti-inflammatories (NSAID); Z79.891 Long term (current) use of opiate analgesic
CPT/HCPCS: 36415; 70450; 70496; 70498; 80048; 80053; 80061; 80307; 81003; 82948; 83735; 84295; 84484; 85025; 85610; 85730; 93005; 93306; 96361; 96365; 96375; 99285; A9270; J1953; J2405; J3411; J7030; J7120; Q9967

== ENCOUNTER 2024-06-14 18:48 | Emergency (ER) | payer OTHER, SELFPAY ==
--- NOTE | ~2024-06-14 | XR_ITS ---
XR knee RT 3V DATE: 06/14/2024 19:05 INDICATION: Right knee pain stepping off ladder TECHNIQUE: 4 views COMPARISON: None FINDINGS: Prominent superior patellar enthesopathy. No fracture or dislocation or joint effusion is detected. No radiopaque intra-articular loose body o r chondrocalcinosis. Mild loss of height of medial compartment joint space No periosteal reaction or bone destruction. IMPRESSION: No fracture or dislocation or joint effusion Reviewed, dictated and finalized at location A. [id number]
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
[2024-06-14 19:01] VITALS: BP 151/81; PULSE 97; RESP 18; TEMP 36.7; O2SAT 96
--- NOTE | 2024-06-14 19:01 | PC.NURSE ---
xray at the bedside
--- NOTE | 2024-06-14 19:22 | PC.NURSE ---
patient requested to go to the bathroom. patient wanted to walk. told patient this rn would get a wheel chair. as this rn was getting wheel chair, patient was up walking towards the bathroom before this RN could get back with wheel chair
--- NOTE | 2024-06-14 19:26 | PC.NURSE ---
registration at the bedside
--- NOTE | 2024-06-14 19:47 | PC.NURSE ---
this rn went to place leela wrap on right knee. patient does not want leela wrap at this time. states he has been using an leela wrap at home. leela wrap was given to his son to take home
== END 2024-06-14 19:48 | disposition home or self-care (01) ==
PROVIDERS: Emergency Provider Emergency Medicine
DX: M23.91 Unspecified internal derangement of right knee (principal); F17.210 Nicotine dependence, cigarettes, uncomplicated; W11.XXXA Fall on and from ladder, initial encounter
CPT/HCPCS: 73562; 99283